=== PATIENT | male | born 1995 | race Caucasian/White ===

== ENCOUNTER 2018-07-07 17:22 | Emergency (ER) | payer OTHER ==
[~2018-07-07] VITALS: Ht 165.1 cm; Wt 49.9 kg
[2018-07-07 17:32] VITALS: Ht 165.1 cm; Wt 49.9 kg
[2018-07-07 20:45] VITALS: BP 119/59
== END 2018-07-07 20:45 | disposition home or self-care (01) ==
LOC: ED 17:22
DX: S43.004A Unspecified dislocation of right shoulder joint, initial encounter (principal); Z88.5 Allergy status to narcotic agent; W19.XXXA Unspecified fall, initial encounter; Y93.89 Activity, other specified; Y92.89 Other specified places as the place of occurrence of the external cause; Y99.8 Other external cause status
CPT/HCPCS: J2250; J3010; Q0092

== ENCOUNTER 2019-07-29 06:08 | Emergency (ER) | payer OTHER ==
[~2019-07-29] VITALS: Ht 154.9 cm; Wt 47.2 kg
[2019-07-29 06:17] VITALS: Ht 154.9 cm; Wt 47.2 kg
[2019-07-29 07:38] LABS: BASOPHIL % 0.4 % (0-2); PLATELET COUNT 219 x10^3mcL (130-400); RED CELL DISTRIBUTION WIDTH 13.8 % (11.5-14.5)
[2019-07-29 08:03] LABS: CALCIUM 9.2 mg/dL (8.5-10.1); CARBON DIOXIDE 26.3 mmol/L (21-32); CHLORIDE SERUM 101 mmol/L (98-107); GFR1 > 60 mL/min; GLUCOSE SERUM 98 mg/dL (74-106); POTASSIUM SERUM 4.1 mmol/L (3.5-5.1); SODIUM SERUM 137 mmol/L (136-145)
[2019-07-29 08:08] LABS: ALBUMIN 4.4 g/dL (3.4-5.0); ALKALINE PHOSPHATASE 73 U/L (46-116); ALT/SGPT 34 U/L (16-63); AST/SGOT 14 U/L (15-37); LIPASE 581 IU/L (73-393); TOTAL PROTEIN, SERUM 7.4 g/dL (6.4-8.2)
[2019-07-29 09:00] VITALS: BP 20/76
== END 2019-07-29 09:00 | disposition home or self-care (01) ==
LOC: ED 06:08
PROVIDERS: Emergency Medicine
DX: G43.D0 Abdominal migraine, not intractable (principal)
CPT/HCPCS: 49082; J0780

== ENCOUNTER 2019-07-30 02:23 | Emergency (ER) | payer OTHER ==
[~2019-07-30] VITALS: Ht 157.5 cm; Wt 46.8 kg
[2019-07-30 02:39] VITALS: Ht 157.5 cm; Wt 46.8 kg
[2019-07-30 04:24] LABS: BASOPHIL % 0.4 % (0-2); PLATELET COUNT 222 x10^3mcL (130-400); RED CELL DISTRIBUTION WIDTH 13.2 % (11.5-14.5)
[2019-07-30 04:46] LABS: CALCIUM 9.1 mg/dL (8.5-10.1); CARBON DIOXIDE 26.1 mmol/L (21-32); CHLORIDE SERUM 102 mmol/L (98-107); GFR1 > 60 mL/min; GLUCOSE SERUM 89 mg/dL (74-106); POTASSIUM SERUM 3.5 mmol/L (3.5-5.1); SODIUM SERUM 140 mmol/L (136-145)
[2019-07-30 04:50] LABS: ALBUMIN 4.4 g/dL (3.4-5.0); ALKALINE PHOSPHATASE 73 U/L (46-116); ALT/SGPT 32 U/L (16-63); AMYLASE 59 U/L (25-115); AST/SGOT 13 U/L (15-37); BILIRUBIN TOTAL 1.37 mg/dL (0.20-1.00); LIPASE 175 IU/L (73-393); TOTAL PROTEIN, SERUM 7.1 g/dL (6.4-8.2)
[2019-07-30 06:46] VITALS: BP 137/91
== END 2019-07-30 06:46 | disposition left against medical advice (07) ==
LOC: ED 02:23 → MU 06:05 → ED 06:05
PROVIDERS: Emergency Medicine
DX: E86.0 Dehydration (principal); R10.817 Generalized abdominal tenderness; R11.2 Nausea with vomiting, unspecified; Z88.8 Allergy status to other drugs, medicaments and biological substances
CPT/HCPCS: J1630; J2270; J3480; J7042; J7060